=== PATIENT | male | born 1945 | race Caucasian/White ===

== ENCOUNTER 2021-07-13 12:55 | Inpatient (IN) | payer MEDICARE, OTHER ==
[~2021-07-13] VITALS: Ht 170.2 cm; Wt 81.8 kg
[2021-07-13] MEDS ORDERED: APIX5TAB PO (13:23)
[2021-07-13] MEDS ORDERED: SITA100T PO (13:23)
[2021-07-13] MEDS ORDERED: ASPI-866 PO (13:23)
[2021-07-13] MEDS ORDERED: INSULIN (13:23)
[2021-07-13] MEDS ORDERED: CLOP75TA15 PO (13:23)
--- NOTE | 2021-07-13 13:24 | NUR ---
.PT PROVIDED THE MED RECON
[2021-07-13] MEDS ORDERED: MORPHINE SULFATE 2 MG/1 ML DISP.SYRIN IV ONE ×2 (13:30→15:15)
[2021-07-13] MEDS ORDERED: MORPHINE SULFATE 2 MG/1 ML DISP.SYRIN ONE ×2 (13:41→14:49)
[2021-07-13 15:29] LABS: HEMATOCRIT 33.4 % (36.7-47.1); MEAN CORPUSCULAR HEMOGLOBIN 29.8 uug (23.8-33.4); MEAN CORPUSCULAR VOLUME 90.7 fL (73.0-96.2); PLATELET COUNT (AUTO) 212 K/uL (152-348)
[2021-07-13 15:32] LABS: CARBON DIOXIDE 24 mmol/L (21-32); CHLORIDE 106 mmol/L (98-107); CREATININE 1.3 mg/dL (0.6-1.3); GLUCOSE 141 mg/dL (74-106); POTASSIUM 4.6 mmol/L (3.5-5.1); UREA NITROGEN, BLOOD 40 mg/dL (7-18)
[2021-07-13 15:38] LABS: ALANINE AMINOTRANSFERASE 17 U/L (16-63); ALKALINE PHOSPHATASE 84 U/L (50-136); ASPARTATE AMINOTRANSFERASE 17 U/L (15-37); BILIRUBIN,DIRECT 0.2 mg/dL (0.0-0.2); BILIRUBIN,TOTAL 0.4 mg/dL (0.2-1.0); TOTAL PROTEIN, SERUM 7.3 g/dL (6.4-8.2)
[2021-07-13] MEDS ORDERED: HYDROMORPHONE 1 MG/1 ML DISP.SYRIN IV ONE ×2 (16:00→17:00)
[2021-07-13] MEDS ORDERED: HYDROMORPHONE 1 MG/1 ML DISP.SYRIN ONE ×2 (16:17→17:10)
[2021-07-13] MEDS ORDERED: KETAMINE HCL 500 MG/10 ML INJ IV ONE (17:00)
[2021-07-13] MEDS ORDERED: KETAMINE HCL 500 MG/10 ML INJ ONE (17:10)
--- NOTE | 2021-07-13 18:58 | NUR ---
Patient is resting comfortably on gurney with eyes closed, calm when awake, respiration:easy, for transfer to 3rd floor medical-surgical floor after change of shift. SBAR to 7pm nurse Ihsan.
[2021-07-13] MEDS ORDERED: REMEDY ESSENTIAL ZINC PASTE 113 GM TP PRN (19:00)
[2021-07-13] MEDS ORDERED: ONDANSETRON 4 MG/2 ML VIAL IV PRN (19:00)
[2021-07-13] MEDS ORDERED: MAGNESIUM HYDROXIDE 30 ML LIQUID UDC PO PRN (19:00)
[2021-07-13] MEDS ORDERED: DEXTROSE 50% 50 ML DISP.SYRIN IV PRN (19:00)
[2021-07-13] MEDS ORDERED: ZOLPIDEM 5 MG TABLET PO PRN (19:00)
[2021-07-13] MEDS: APIXABAN 5 MG TABLET PO SCH (19:15)
[2021-07-13] MEDS ORDERED: Z GUARD REMEDY PASTE 57 GM TUBE TOP PRN (19:15)
--- NOTE | 2021-07-13 19:17 | NUR ---
report received. pt to go to room 311. pt a/o denies pain.
--- NOTE | 2021-07-13 19:56 | NUR ---
pt transferred to room 311 via nneka with myself and another RN. Marilou BRITO in room to accept pt. Pt transferred with all belongings.
[2021-07-13] MEDS: BLOOD SUGAR DIAGNOSTIC 1 EACH STRIP VI SCH (22:11)
[2021-07-13] MEDS: MORPHINE SULFATE 2 MG/1 ML DISP.SYRIN IV PRN (22:19)
[2021-07-13] MEDS: IV NS 1000 ML 1,000 ML IV PRN (22:20)
[2021-07-13] MEDS: INSULIN REGULAR, HUMAN 300 UNIT/3 ML VIAL SQ PRN (22:21)
[2021-07-13] MEDS: HYDROCODONE/APAP 5-325MG TABLET PO PRN (22:47)
[2021-07-14] MEDS: HYDROCODONE/APAP 5-325MG TABLET PO PRN ×5 (03:01→20:46)
[2021-07-14 05:35] VITALS: BP 111/48
--- NOTE | 2021-07-14 05:40 | NUR ---
Pt admitted to [facility] in stable condition. Pt in a substantial amount of pain in L hip due to fracture. States that morphine doesn't help much but PO [place] has been helping more. Able to make needs known. IV site intact. Comfort provided. Will endorse to day shift.
[2021-07-14] MEDS: BLOOD SUGAR DIAGNOSTIC 1 EACH STRIP VI SCH ×4 (06:53→20:59)
--- NOTE | 2021-07-14 08:00 | NUR ---
Discussed pain management with patient on asking for [place] and Morphine for breakthrough pain. Pt agreeable with pain management. Pt able to wiggle toes bilaterally on foot and feel sensation. Noted left leg longer than the right. Applied ICe pack on fractured area of left leg. IV on left forearm. IVF infusing as ordered. Discussed importance of turning q 2 hrs with pt so that he wont develop any bed sores. Pt refuses "IM in too much Pain to do that". Will plan to premedicate prior to turning.
[2021-07-14 08:16] LABS: HEMATOCRIT 30.3 % (36.7-47.1); MEAN CORPUSCULAR HEMOGLOBIN 29.4 uug (23.8-33.4); MEAN CORPUSCULAR VOLUME 90.1 fL (73.0-96.2); PLATELET COUNT (AUTO) 182 K/uL (152-348)
[2021-07-14 08:40] LABS: CREATININE 1.2 mg/dL (0.6-1.3); MAGNESIUM 2.2 mg/dL (1.8-2.4)
[2021-07-14] MEDS ORDERED: CLOPIDOGREL 75 MG TABLET PO SCH (09:00)
[2021-07-14] MEDS ORDERED: ASPIRIN EC 81 MG TABLET.DR PO SCH (09:00)
[2021-07-14] MEDS: APIXABAN 5 MG TABLET PO SCH (09:21)
[2021-07-14 11:14] VITALS: BP 119/56
[2021-07-14] MEDS: MORPHINE SULFATE 2 MG/1 ML DISP.SYRIN IV PRN ×2 (11:51→18:13)
[2021-07-14 15:10] VITALS: BP 105/49
--- NOTE | 2021-07-14 16:00 | NUR ---
PT has been refusing to turn 2nd to pain even if pt was premedicated. Call light is within reach.
[2021-07-14] MEDS: IV NS 1000 ML 1,000 ML IV PRN ×2 (16:04→16:13)
[2021-07-14] MEDS ORDERED: GABA-532 PO (16:13)
[2021-07-14] MEDS ORDERED: LISI1TAB55 PO (16:13)
[2021-07-14] MEDS ORDERED: PANT40TA49 PO (16:14)
[2021-07-14] MEDS ORDERED: ROSU10TA2 GT (16:14)
[2021-07-14] MEDS ORDERED: TAMS-3 PO (16:15)
[2021-07-14] MEDS ORDERED: CARV6.252 PO (16:15)
[2021-07-14 17:20] LABS: *BILIRUBIN,URIN NEGATIVE (NEGATIVE); *CLARITY,URINE CLEAR (CLEAR); *COLOR,URINE YELLOW (YELLOW); *KETONES,URINE NEGATIVE (NEGATIVE); *UROBILINOGEN,URINE 0.2 E.U./dl (NORMAL); LEUKOCYTE ESTERASE ,URINE NEGATIVE (NEGATIVE); NITRITE, URINE NEGATIVE (NEGATIVE)
[2021-07-14 17:21] LABS: UGLUCOSE 2+ (NEGATIVE)
[2021-07-14 17:22] LABS: *BLOOD, URINE TRACE (NEGATIVE)
[2021-07-14 17:24] LABS: BACTERIA,URINE NONE SEEN /HPF (NONE SEEN); RBC,URINE 0-3 /HPF (0-3); SQUAMOUS EPITHELIAL CELL,UR NONE SEEN /HPF (NONE SEEN); WBC,URINE 0-3 /HPF (0-3)
--- NOTE | 2021-07-14 18:46 | NUR ---
Pt's pain managed with NORCO and MORPHINE for breakthrough. PT is in no acute distress. Continue to put ICE on LEft leg.
--- NOTE | 2021-07-14 19:30 | NUR ---
Received pt awake, alert and orientedx4. Pt in no acute distress. Pt can make his needs known. Iv intact. Pt on room air. Safety and comfort provided. Will continue to monitor.
[2021-07-14] MEDS: ACETAMINOPHEN 325 MG TABLET PO PRN (20:45)
[2021-07-14] MEDS: INSULIN REGULAR, HUMAN 300 UNIT/3 ML VIAL SQ PRN (20:47)
[2021-07-14 21:38] VITALS: BP 106/53
[2021-07-15 00:03] LABS: *CREATININE,URINE 75.3 mg/dL (30-125); *URINE TOTAL PROTEIN RANDOM 16.5 mg/dL (<150/24HR)
[2021-07-15 04:15] VITALS: BP 129/51
--- NOTE | 2021-07-15 06:22 | NUR ---
Pt in no acute distress. Iv intact.Pt on room air. Ice compress applied. Safety and comfort provided. Pt stable. Pt on npo. All needs are met. Will endorse to incoming nurse for continuity of care.
[2021-07-15] MEDS: BLOOD SUGAR DIAGNOSTIC 1 EACH STRIP VI SCH ×4 (06:38→21:14)
[2021-07-15] MEDS: IV NS 1000 ML 1,000 ML IV PRN (06:40)
[2021-07-15] MEDS: MORPHINE SULFATE 2 MG/1 ML DISP.SYRIN IV PRN (06:43)
--- NOTE | 2021-07-15 06:43 | NUR ---
morphine prn given to pt for 8/10 hip pain. Pt stable. Will endorse to incoming nurse for continuity of care.
--- NOTE | 2021-07-15 07:00 | NUR ---
Asked pt if we can change his clothes to gown. Pt told staff that he will change later.Pt stable. Will endorse to incoming nurse.
[2021-07-15 07:15] LABS: HEMATOCRIT 30.4 % (36.7-47.1); MEAN CORPUSCULAR HEMOGLOBIN 28.9 uug (23.8-33.4); MEAN CORPUSCULAR VOLUME 90.3 fL (73.0-96.2); PLATELET COUNT (AUTO) 177 K/uL (152-348)
[2021-07-15 07:40] LABS: CREATININE 1.3 mg/dL (0.6-1.3); MAGNESIUM 2.1 mg/dL (1.8-2.4); PHOSPHOROUS 3.3 mg/dL (2.5-4.9); POTASSIUM 4.3 mmol/L (3.5-5.1)
[2021-07-15 11:52] VITALS: BP 144/68
[2021-07-15] MEDS: HYDROCODONE/APAP 5-325MG TABLET PO PRN (11:58)
--- NOTE | 2021-07-15 16:00 | NUR ---
Pt picked up by surgery team. PT's pain managed with norco and morphine. preop checklist done. consent done.
[2021-07-15 16:04] VITALS: BP 130/55
[2021-07-15] MEDS ORDERED: FENTANYL CITRATE 100 MCG/2 ML AMPUL ONE ×2 (16:47→18:22)
[2021-07-15] MEDS ORDERED: VANCOMYCIN 1000 MG VIAL ONE (17:29)
[2021-07-15] MEDS ORDERED: EMPA25TA PO (17:29)
--- NOTE | 2021-07-15 19:40 | NUR ---
PATIENT BACK FROM SURGEY, ALERT ORIENTED, NO SOB NO CHEST PAIN, COMPLAINS OF BACK PAIN S/P FALL, WITH LEFT THIGH DRESSING AND LEFT HIP DRESSING, KEPT COMFORTABLE, CALL LIGHTS WITHIN REACH. CONT TO MONITOR.
[2021-07-15 20:00] VITALS: BP 122/62
[2021-07-15] MEDS: MORPHINE SULFATE 4 MG/1 ML DISP.SYRIN IV PRN (20:02)
[2021-07-15] MEDS: POTASSIUM CHLORIDE 20 MEQ in IV D5 1/2 NS 1000 ML 1,000 ML IV PRN (21:10)
[2021-07-16] MEDS: CEFAZOLIN 1 G in IV DEXTROSE 5% 50 ML IV SCH ×2 (01:14→09:21)
[2021-07-16 04:00] VITALS: BP 110/50
--- NOTE | 2021-07-16 04:38 | NUR ---
PATIENT ASLEEP BUT AROUSABLE, PATIENT HAS PAIN BUT TOLERABLE, KEPT CLEAN AND DRY, TURN SIDE BY SIDE, CONT TO MONITOR.
[2021-07-16] MEDS: ACETAMINOPHEN 325 MG TABLET PO PRN (05:37)
[2021-07-16] MEDS: BLOOD SUGAR DIAGNOSTIC 1 EACH STRIP VI SCH ×4 (06:04→21:08)
[2021-07-16] MEDS: INSULIN REGULAR, HUMAN 300 UNIT/3 ML VIAL SQ PRN ×2 (08:25→16:54)
[2021-07-16] MEDS: MORPHINE SULFATE 4 MG/1 ML DISP.SYRIN IV PRN ×2 (08:28→21:27)
--- NOTE | 2021-07-16 08:30 | NUR ---
PATIENT RECEIVED IN BED AWAKE ALERT AND ORIENTED GETS EASILY ANNOYED WANTS TO EAT HIS BREAKFAST AT 0700 EVERY DAY STATED HIS FOOD WAS LATE REASSURED HIM THAT FOOD IS BEING PREPARED IN THE DIETARY AND IS USUALLY PASSED SOON IT GETS TO THE FLOOR SEEM TO UNDERSTAND BUT WILL CONTINUE TO REASSURE MEDICATED HIM FOR PAIN POST OP TEACHING IN PROGRESS INFORMED HIM THAT THE PHYSICAL THERAPY WILL BE HERE TO MOBILIZE HIM ORDERED BY HIS ORTHOPEDIC DOCTOR AND HE EXPRESSED UNDERSTANDING.VOIDING HAS BEEN ADEQUATE USING URINAL LEFT HIP WITH DRESSING INTACT CALL LIGHTS AND PERSONAL BELONGINGS ARE WITHIN EASY REACH WILL CONTINUE TO OBSERVE.
[2021-07-16] MEDS: POTASSIUM CHLORIDE 20 MEQ in IV D5 1/2 NS 1000 ML 1,000 ML IV PRN (09:35)
--- NOTE | 2021-07-16 11:50 | NUR ---
BLOOD SUGAR AT THIS TIME IS 143 AND PER THE SLIDING SCALE PATIENT SHOULD GET 2UNITS OF REGULAR INSULIN BUT HE REFUSED STATED THAT HE DOES NOT TAKE INSULIN AT SUCH A LOW NUMBER PATIENT RIGHT TO REFUSED RESPECTED.
[2021-07-16 12:00] VITALS: BP 102/57
[2021-07-16 13:09] LABS: HEMATOCRIT 27.1 % (36.7-47.1); MEAN CORPUSCULAR HEMOGLOBIN 29.6 uug (23.8-33.4); MEAN CORPUSCULAR VOLUME 91.2 fL (73.0-96.2); PLATELET COUNT (AUTO) 168 K/uL (152-348)
[2021-07-16 13:22] LABS: CARBON DIOXIDE 23 mmol/L (21-32); CHLORIDE 105 mmol/L (98-107); CREATININE 1.7 mg/dL (0.6-1.3); GLUCOSE 149 mg/dL (74-106); POTASSIUM 4.3 mmol/L (3.5-5.1); UREA NITROGEN, BLOOD 31 mg/dL (7-18)
[2021-07-16] MEDS: SOD FERRIC GLUC COMPLX/SUCROSE 125 MG in IV NORMAL SALINE 100 ML IV SCH (16:55)
--- NOTE | 2021-07-16 18:00 | NUR ---
FERRLICIT INFUSED ORDERED WITH NO ADVERSE OR ALLERGIC REACTIONS AT THIS TIME AFEBRILE MADE COMFORTABLE WILL CONTINUE TO OBSERVE
[2021-07-16 20:00] VITALS: BP 126/55
--- NOTE | 2021-07-16 20:00 | NUR ---
PATIENT ALERT ORIENTED, WITH R HIP DRESSING, COMPLAIN OF PAIN WHEN MOVED, TURN AND REPOSITION, MEDICATED PATIENT FOR PAIN PRIOR ADL'S, KEPT CLEAN AND DRY, CONT TO MONITOR.
[2021-07-16] MEDS: DOCUSATE SODIUM 100 MG CAPSULE PO SCH (21:07)
[2021-07-17] MEDS: POTASSIUM CHLORIDE 20 MEQ in IV D5 1/2 NS 1000 ML 1,000 ML IV PRN ×3 (00:02→19:50)
[2021-07-17 04:00] VITALS: BP 115/48
[2021-07-17] MEDS: BLOOD SUGAR DIAGNOSTIC 1 EACH STRIP VI SCH ×4 (06:18→20:36)
[2021-07-17 06:46] LABS: HEMATOCRIT 25.4 % (36.7-47.1); MEAN CORPUSCULAR VOLUME 90.3 fL (73.0-96.2); PLATELET COUNT (AUTO) 160 K/uL (152-348)
--- NOTE | 2021-07-17 06:49 | NUR ---
PATIENT ALERT ORIENTED, CONT PAIN MANAGEMENT ON LEFT SURGERY, AND BACK PAIN, KEPT CLEAN AND DRY, CONT TO MONITOR.
[2021-07-17 07:08] LABS: CREATININE 1.3 mg/dL (0.6-1.3); POTASSIUM 4.2 mmol/L (3.5-5.1)
[2021-07-17] MEDS: MORPHINE SULFATE 4 MG/1 ML DISP.SYRIN IV PRN (08:35)
[2021-07-17] MEDS: INSULIN REGULAR, HUMAN 300 UNIT/3 ML VIAL SQ PRN ×4 (08:39→20:39)
[2021-07-17] MEDS: DOCUSATE SODIUM 100 MG CAPSULE PO SCH ×2 (08:49→20:19)
[2021-07-17 12:00] VITALS: BP 99/47
[2021-07-17] MEDS: SOD FERRIC GLUC COMPLX/SUCROSE 125 MG in IV NORMAL SALINE 100 ML IV SCH (14:21)
[2021-07-17 16:00] VITALS: BP 110/49
[2021-07-17] MEDS: APIXABAN 5 MG TABLET PO SCH (18:03)
[2021-07-17 20:00] VITALS: BP 115/60
[2021-07-17] MEDS: ACETAMINOPHEN 325 MG TABLET PO PRN (20:19)
[2021-07-18] MEDS: MORPHINE SULFATE 4 MG/1 ML DISP.SYRIN IV PRN ×2 (03:16→08:25)
[2021-07-18 04:00] VITALS: BP 113/77
--- NOTE | 2021-07-18 06:02 | NUR ---
Pt c/o pain periodically that is relieved with morphine. No distress noted. IV site intact. Pt able to make needs known. Will endorse to day shift.
[2021-07-18] MEDS: POTASSIUM CHLORIDE 20 MEQ in IV D5 1/2 NS 1000 ML 1,000 ML IV PRN (06:11)
[2021-07-18] MEDS: BLOOD SUGAR DIAGNOSTIC 1 EACH STRIP VI SCH ×2 (06:19→12:00)
[2021-07-18 06:50] LABS: HEMATOCRIT 24.5 % (36.7-47.1); MEAN CORPUSCULAR HEMOGLOBIN 29.3 uug (23.8-33.4); PLATELET COUNT (AUTO) 177 K/uL (152-348)
--- NOTE | 2021-07-18 07:30 | NUR ---
Received awake and oriented x3. Iv intact and patent. No resp distress noted. Comfortable no complaints at this time. Kept comfortable.
[2021-07-18] MEDS: INSULIN REGULAR, HUMAN 300 UNIT/3 ML VIAL SQ PRN ×2 (08:19→12:01)
[2021-07-18] MEDS: DOCUSATE SODIUM 100 MG CAPSULE PO SCH (08:20)
[2021-07-18] MEDS: ACETAMINOPHEN 325 MG TABLET PO PRN (08:20)
[2021-07-18] MEDS: APIXABAN 5 MG TABLET PO SCH (08:20)
[2021-07-18] MEDS ORDERED: CLOPIDOGREL 75 MG TABLET PO SCH (09:00)
[2021-07-18 10:51] VITALS: BP 115/65
[2021-07-18] MEDS ORDERED: HYDR-3980 PO (12:06)
[2021-07-18] MEDS ORDERED: ZOLP5TAB2 PO (12:06)
[2021-07-18] MEDS ORDERED: DOCU-141 PO (12:06)
[2021-07-18] MEDS ORDERED: CLOP75TA33 PO (12:06)
[2021-07-18] MEDS: SOD FERRIC GLUC COMPLX/SUCROSE 125 MG in IV NORMAL SALINE 100 ML IV SCH (14:09)
--- NOTE | 2021-07-18 15:03 | NUR ---
Patient agreed to being discharged to acute rehab unit verbalized understanding of discharge instructions. Belonging list done.
[2021-07-18] MEDS ORDERED: CEFAZOLIN 1 G VIAL IM ONE (15:14)
[2021-07-18] MEDS ORDERED: ONDANSETRON 4 MG/2 ML VIAL IV ONE (15:14)
[2021-07-18] MEDS ORDERED: LIDOCAINE-MPF 2% 5 ML VIAL IJ ONE (15:14)
[2021-07-18] MEDS ORDERED: PROPOFOL 200 MG/20 ML BOTTLE IV ONE (15:14)
[2021-07-18] MEDS ORDERED: ROSU10TA2 PO (17:42)
== END 2021-07-18 15:15 | DRG 480 ==
LOC: ER 12:58 → UNDOADMIN 18:55 → TRANSITION 18:55 → MEDSURG3 19:21
PROVIDERS: ADMIT Nurse Practitioner Acute Care; ATTEND Nurse Practitioner Acute Care
PROC: 0QS706Z Reposition Left Upper Femur with Intramedullary Internal Fixation Device, Open Approach (ICD-10-PCS; principal; 2021-07-15)
DX: S72.142A Displaced intertrochanteric fracture of left femur, initial encounter for closed fracture (principal); N17.0 Acute kidney failure with tubular necrosis; K56.7 Ileus, unspecified; E11.65 Type 2 diabetes mellitus with hyperglycemia; E88.9 Metabolic disorder, unspecified; I25.10 Atherosclerotic heart disease of native coronary artery without angina pectoris; Z79.01 Long term (current) use of anticoagulants; Z79.4 Long term (current) use of insulin; Z20.822 Contact with and (suspected) exposure to COVID-19; D64.9 Anemia, unspecified; Z79.82 Long term (current) use of aspirin; Z96.641 Presence of right artificial hip joint; W19.XXXA Unspecified fall, initial encounter; Y93.9 Activity, unspecified; Y92.009 Unspecified place in unspecified non-institutional (private) residence as the place of occurrence of the external cause; Z98.62 Peripheral vascular angioplasty status
CPT/HCPCS: 36415; 70030-TC; 70450; 71045; 72170; 73502; 73503; 73551; 83735; 84100; 84156; 84300; 85025; 85730; 86850; 86900; 86901; 86920; 93005; 93307; 97161; A4217; A4649; A6209; C1713; C1769; G0378; J0690; J1170; J2270; J2405; J2916; J3010; J3370; J3480; J3490; J7030; J7060

== ENCOUNTER 2021-07-18 15:20 | Inpatient (IN) | payer MEDICARE, OTHER ==
[~2021-07-18] VITALS: Ht 170.2 cm; Wt 81.6 kg
[~2021-07-18 15:20] MED LIST: APIX5TAB PO; ASPI-866 PO; CARV6.252 PO; CLOP75TA15 PO; CLOP75TA33 PO; DOCU-141 PO; EMPA25TA PO; GABA-532 PO; HYDR-3980 PO; INSULIN; LISI1TAB55 PO; PANT40TA49 PO; ROSU10TA2 GT; TAMS-3 PO; ZOLP5TAB2 PO
[2021-07-18 15:47] VITALS: BP 108/52
[2021-07-18] MEDS ORDERED: ROSU10TA2 PO (17:42)
[2021-07-18] MEDS ORDERED: REMEDY ESSENTIAL ZINC PASTE 113 GM TOP PRN (18:00)
[2021-07-18 20:00] VITALS: BP 129/54
[2021-07-18] MEDS ORDERED: ZOLPIDEM 5 MG TABLET PO PRN (20:45)
[2021-07-18] MEDS ORDERED: GABAPENTIN 100 MG CAPSULE PO PRN (20:45)
[2021-07-18] MEDS: ATORVASTATIN 20 MG TABLET PO SCH (21:30)
[2021-07-18] MEDS: CARVEDILOL 6.25 MG TABLET PO SCH (21:30)
[2021-07-18] MEDS: DOCUSATE SODIUM 100 MG CAPSULE PO SCH (21:30)
[2021-07-18] MEDS: APIXABAN 5 MG TABLET PO SCH (21:32)
[2021-07-19 04:00] VITALS: BP 121/56
[2021-07-19] MEDS: HYDROCODONE/APAP 10-325 MG TABLET PO PRN ×3 (06:04→18:36)
[2021-07-19] MEDS: PANTOPRAZOLE SODIUM 40 MG TABLET.DR PO SCH (06:04)
[2021-07-19 08:01] VITALS: BP 112/52
[2021-07-19] MEDS ORDERED: Medication Not On Formulary EA (Rosuvastatin Calcium (Crestor) 10 MG) PO SCH (09:00)
[2021-07-19] MEDS ORDERED: HCTZ PO SCH (09:00)
[2021-07-19] MEDS ORDERED: TAMSULOSIN HCL 0.4 MG CAP.SR.24H PO SCH (09:00)
[2021-07-19] MEDS ORDERED: LISINOPRIL PO SCH (09:00)
[2021-07-19] MEDS ORDERED: [UNRECOGNIZED DRUG - OTHER] PO SCH (09:00)
[2021-07-19] MEDS ORDERED: Empagliflozin (Jardiance) 25 MG) PO SCH (09:00)
[2021-07-19] MEDS: APIXABAN 5 MG TABLET PO SCH ×2 (09:09→16:32)
[2021-07-19] MEDS: HYDROCHLOROTHIAZIDE 12.5 MG CAPSULE PO SCH (09:09)
[2021-07-19] MEDS: CLOPIDOGREL 75 MG TABLET PO SCH (09:09)
[2021-07-19] MEDS: ASPIRIN EC 81 MG TABLET.DR PO SCH (09:09)
[2021-07-19] MEDS: DOCUSATE SODIUM 100 MG CAPSULE PO SCH ×2 (09:13→20:42)
[2021-07-19] MEDS: LISINOPRIL 20 MG TABLET PO SCH (09:13)
[2021-07-19] MEDS: CARVEDILOL 6.25 MG TABLET PO SCH ×2 (09:13→20:43)
[2021-07-19 16:03] VITALS: BP 110/51
[2021-07-19] MEDS ORDERED: DEXTROSE 50% 50 ML DISP.SYRIN IV PRN (17:45)
[2021-07-19 20:00] VITALS: BP 97/46
[2021-07-19] MEDS: TAMSULOSIN HCL 0.4 MG CAP.SR.24H PO SCH (20:42)
[2021-07-19] MEDS: ATORVASTATIN 20 MG TABLET PO SCH (20:42)
[2021-07-19] MEDS: BLOOD SUGAR DIAGNOSTIC 1 EACH STRIP VI SCH (20:49)
[2021-07-19] MEDS: INSULIN REGULAR, HUMAN 300 UNIT/3 ML VIAL SQ PRN (20:51)
[2021-07-20 04:40] VITALS: BP 107/59
[2021-07-20] MEDS: HYDROCODONE/APAP 10-325 MG TABLET PO PRN ×3 (06:07→22:07)
[2021-07-20] MEDS: PANTOPRAZOLE SODIUM 40 MG TABLET.DR PO SCH (06:28)
[2021-07-20] MEDS: BLOOD SUGAR DIAGNOSTIC 1 EACH STRIP VI SCH ×4 (06:38→21:07)
[2021-07-20 06:57] LABS: HEMATOCRIT 22.2 % (36.7-47.1); MEAN CORPUSCULAR HEMOGLOBIN 29.6 uug (23.8-33.4); MEAN CORPUSCULAR VOLUME 90.9 fL (73.0-96.2); PLATELET COUNT (AUTO) 221 K/uL (152-348)
[2021-07-20] MEDS: INSULIN REGULAR, HUMAN 300 UNIT/3 ML VIAL SQ PRN ×3 (08:31→17:11)
[2021-07-20 08:56] VITALS: BP 106/48
[2021-07-20] MEDS: ASPIRIN EC 81 MG TABLET.DR PO SCH (08:57)
[2021-07-20] MEDS: CLOPIDOGREL 75 MG TABLET PO SCH (08:57)
[2021-07-20] MEDS: DOCUSATE SODIUM 100 MG CAPSULE PO SCH ×3 (08:58→21:10)
[2021-07-20] MEDS: APIXABAN 5 MG TABLET PO SCH ×2 (08:58→16:59)
[2021-07-20] MEDS: HYDROCHLOROTHIAZIDE 12.5 MG CAPSULE PO SCH (09:00)
[2021-07-20] MEDS: CARVEDILOL 6.25 MG TABLET PO SCH ×2 (09:00→21:00)
[2021-07-20] MEDS: LISINOPRIL 20 MG TABLET PO SCH (09:00)
[2021-07-20 15:10] VITALS: BP 101/42
[2021-07-20] MEDS ORDERED: EPOETIN ALFA-EPBX 10,000 UNIT/ML VIAL SQ ONE (19:30)
[2021-07-20 20:30] VITALS: BP 106/58
[2021-07-20] MEDS: ATORVASTATIN 20 MG TABLET PO SCH (21:10)
[2021-07-20] MEDS: TAMSULOSIN HCL 0.4 MG CAP.SR.24H PO SCH (21:10)
[2021-07-20] MEDS: INSULIN REGULAR, HUMAN 300 UNITS/3 ML VIAL SQ PRN (21:12)
[2021-07-21 04:17] VITALS: BP 110/50
[2021-07-21] MEDS: PANTOPRAZOLE SODIUM 40 MG TABLET.DR PO SCH (06:03)
[2021-07-21] MEDS: BLOOD SUGAR DIAGNOSTIC 1 EACH STRIP VI SCH ×4 (06:54→20:45)
[2021-07-21 07:04] LABS: HEMATOCRIT 25.9 % (36.7-47.1); MEAN CORPUSCULAR HEMOGLOBIN 29.5 uug (23.8-33.4); MEAN CORPUSCULAR VOLUME 92.6 fL (73.0-96.2); PLATELET COUNT (AUTO) 278 K/uL (152-348)
[2021-07-21 08:46] VITALS: BP 119/57
[2021-07-21] MEDS: LISINOPRIL 20 MG TABLET PO SCH (09:00)
[2021-07-21] MEDS: CLOPIDOGREL 75 MG TABLET PO SCH (09:17)
[2021-07-21] MEDS: HYDROCHLOROTHIAZIDE 12.5 MG CAPSULE PO SCH (09:17)
[2021-07-21] MEDS: DOCUSATE SODIUM 100 MG CAPSULE PO SCH ×3 (09:18→21:00)
[2021-07-21] MEDS: CARVEDILOL 6.25 MG TABLET PO SCH ×2 (09:18→20:23)
[2021-07-21] MEDS: ASPIRIN EC 81 MG TABLET.DR PO SCH (09:18)
[2021-07-21] MEDS: HYDROCODONE/APAP 10-325 MG TABLET PO PRN ×2 (09:26→18:07)
[2021-07-21] MEDS: APIXABAN 5 MG TABLET PO SCH ×2 (09:32→17:21)
[2021-07-21 15:50] VITALS: BP 109/49
[2021-07-21] MEDS ORDERED: MAGNESIUM CITRATE 296 ML BOTTLE PO ONE (17:30)
[2021-07-21 20:00] VITALS: BP 108/59
[2021-07-21] MEDS: ATORVASTATIN 20 MG TABLET PO SCH (20:22)
[2021-07-21] MEDS: TAMSULOSIN HCL 0.4 MG CAP.SR.24H PO SCH (20:22)
[2021-07-21] MEDS: INSULIN REGULAR, HUMAN 300 UNITS/3 ML VIAL SQ PRN (20:50)
[2021-07-22 04:32] VITALS: BP 105/53
[2021-07-22] MEDS: PANTOPRAZOLE SODIUM 40 MG TABLET.DR PO SCH (05:56)
[2021-07-22] MEDS: BLOOD SUGAR DIAGNOSTIC 1 EACH STRIP VI SCH ×4 (06:01→20:48)
[2021-07-22] MEDS: DOCUSATE SODIUM 100 MG CAPSULE PO SCH ×3 (08:37→20:59)
[2021-07-22] MEDS: CLOPIDOGREL 75 MG TABLET PO SCH (08:37)
[2021-07-22] MEDS: HYDROCODONE/APAP 10-325 MG TABLET PO PRN ×2 (08:38→16:29)
[2021-07-22] MEDS: HYDROCHLOROTHIAZIDE 12.5 MG CAPSULE PO SCH (08:41)
[2021-07-22] MEDS: ASPIRIN EC 81 MG TABLET.DR PO SCH (08:41)
[2021-07-22] MEDS: CARVEDILOL 6.25 MG TABLET PO SCH ×2 (08:41→20:53)
[2021-07-22] MEDS: LISINOPRIL 20 MG TABLET PO SCH (08:41)
[2021-07-22] MEDS: APIXABAN 5 MG TABLET PO SCH ×2 (08:42→16:16)
[2021-07-22] MEDS: INSULIN REGULAR, HUMAN 300 UNIT/3 ML VIAL SQ PRN ×2 (11:27→16:17)
[2021-07-22] MEDS ORDERED: OXYCODONE HCL 5 MG TABLET PO SCH (13:00)
[2021-07-22] MEDS ORDERED: OXYCODONE HCL 5 MG TABLET PO ONE (13:00)
[2021-07-22 20:00] VITALS: BP 101/45
[2021-07-22] MEDS: INSULIN REGULAR, HUMAN 300 UNITS/3 ML VIAL SQ PRN (20:49)
[2021-07-22] MEDS: ATORVASTATIN 20 MG TABLET PO SCH (20:50)
[2021-07-22] MEDS: TAMSULOSIN HCL 0.4 MG CAP.SR.24H PO SCH (20:50)
[2021-07-22] MEDS: OXYCODONE HCL 10 MG TAB.SR.12H PO SCH (20:52)
[2021-07-23 04:00] VITALS: BP 107/44
[2021-07-23] MEDS: PANTOPRAZOLE SODIUM 40 MG TABLET.DR PO SCH (06:04)
[2021-07-23] MEDS: BLOOD SUGAR DIAGNOSTIC 1 EACH STRIP VI SCH ×4 (06:33→20:39)
[2021-07-23 08:19] VITALS: BP 95/49
[2021-07-23] MEDS: OXYCODONE HCL 10 MG TAB.SR.12H PO SCH ×2 (08:36→20:33)
[2021-07-23] MEDS: INSULIN REGULAR, HUMAN 300 UNIT/3 ML VIAL SQ PRN ×2 (08:37→12:27)
[2021-07-23] MEDS: DOCUSATE SODIUM 100 MG CAPSULE PO SCH ×2 (08:38→20:33)
[2021-07-23] MEDS: ASPIRIN EC 81 MG TABLET.DR PO SCH (08:40)
[2021-07-23] MEDS: HYDROCHLOROTHIAZIDE 12.5 MG CAPSULE PO SCH (08:40)
[2021-07-23] MEDS: CARVEDILOL 6.25 MG TABLET PO SCH ×2 (08:40→20:34)
[2021-07-23] MEDS: CLOPIDOGREL 75 MG TABLET PO SCH (08:40)
[2021-07-23] MEDS: APIXABAN 5 MG TABLET PO SCH ×2 (08:41→16:42)
[2021-07-23] MEDS: LISINOPRIL 20 MG TABLET PO SCH (08:43)
[2021-07-23] MEDS: HYDROCODONE/APAP 10-325 MG TABLET PO PRN (12:32)
[2021-07-23] MEDS ORDERED: OXYCODONE/APAP 5-325 MG TABLET PO PRN (19:00)
[2021-07-23 20:00] VITALS: BP 123/55
[2021-07-23] MEDS: ATORVASTATIN 20 MG TABLET PO SCH (20:31)
[2021-07-23] MEDS: TAMSULOSIN HCL 0.4 MG CAP.SR.24H PO SCH (20:32)
[2021-07-23] MEDS: INSULIN REGULAR, HUMAN 300 UNITS/3 ML VIAL SQ PRN (21:44)
[2021-07-24 04:00] VITALS: BP 110/48
[2021-07-24] MEDS: PANTOPRAZOLE SODIUM 40 MG TABLET.DR PO SCH (06:09)
[2021-07-24] MEDS: BLOOD SUGAR DIAGNOSTIC 1 EACH STRIP VI SCH ×4 (06:36→21:00)
[2021-07-24] MEDS: INSULIN REGULAR, HUMAN 300 UNIT/3 ML VIAL SQ PRN ×3 (08:31→16:26)
[2021-07-24] MEDS: HYDROCHLOROTHIAZIDE 12.5 MG CAPSULE PO SCH (08:32)
[2021-07-24] MEDS: OXYCODONE HCL 10 MG TAB.SR.12H PO SCH (08:32)
[2021-07-24] MEDS: APIXABAN 5 MG TABLET PO SCH ×2 (08:32→16:26)
[2021-07-24] MEDS: CLOPIDOGREL 75 MG TABLET PO SCH (08:32)
[2021-07-24] MEDS: ASPIRIN EC 81 MG TABLET.DR PO SCH (08:33)
[2021-07-24] MEDS: LISINOPRIL 20 MG TABLET PO SCH (08:34)
[2021-07-24] MEDS: CARVEDILOL 6.25 MG TABLET PO SCH ×2 (08:34→21:00)
[2021-07-24] MEDS: DOCUSATE SODIUM 100 MG CAPSULE PO SCH ×3 (08:34→21:00)
[2021-07-24 08:50] VITALS: BP 108/72
[2021-07-24] MEDS: OXYCODONE/APAP 5-325 MG TABLET PO PRN (12:08)
[2021-07-24] MEDS ORDERED: OXYCODONE HCL 10 MG TAB.SR.12H PO SCH (14:00)
[2021-07-24 17:16] VITALS: BP 95/52
[2021-07-24 20:00] VITALS: BP 102/40
[2021-07-24] MEDS: OXYCODONE HCL 20 MG TAB.SR.12H PO SCH (20:00)
[2021-07-24] MEDS: ATORVASTATIN 20 MG TABLET PO SCH (21:00)
[2021-07-24] MEDS: TAMSULOSIN HCL 0.4 MG CAP.SR.24H PO SCH (21:00)
[2021-07-25 04:00] VITALS: BP 99/57
[2021-07-25] MEDS: PANTOPRAZOLE SODIUM 40 MG TABLET.DR PO SCH (07:52)
[2021-07-25] MEDS: BLOOD SUGAR DIAGNOSTIC 1 EACH STRIP VI SCH ×4 (07:52→20:25)
[2021-07-25 07:54] VITALS: BP 101/55
[2021-07-25] MEDS: ASPIRIN EC 81 MG TABLET.DR PO SCH (08:39)
[2021-07-25] MEDS: CLOPIDOGREL 75 MG TABLET PO SCH (08:40)
[2021-07-25] MEDS: DOCUSATE SODIUM 100 MG CAPSULE PO SCH ×2 (08:40→20:20)
[2021-07-25] MEDS: APIXABAN 5 MG TABLET PO SCH ×2 (08:41→17:08)
[2021-07-25] MEDS: OXYCODONE HCL 20 MG TAB.SR.12H PO SCH ×2 (08:46→20:20)
[2021-07-25] MEDS: HYDROCHLOROTHIAZIDE 12.5 MG CAPSULE PO SCH (09:00)
[2021-07-25] MEDS: CARVEDILOL 6.25 MG TABLET PO SCH ×2 (09:00→20:29)
[2021-07-25] MEDS: LISINOPRIL 20 MG TABLET PO SCH (09:00)
[2021-07-25] MEDS: INSULIN REGULAR, HUMAN 300 UNIT/3 ML VIAL SQ PRN ×4 (09:20→20:28)
[2021-07-25 15:56] VITALS: BP 100/52
[2021-07-25 20:20] VITALS: BP 96/42
[2021-07-25] MEDS: ATORVASTATIN 20 MG TABLET PO SCH (20:20)
[2021-07-25] MEDS: TAMSULOSIN HCL 0.4 MG CAP.SR.24H PO SCH (20:20)
[2021-07-26 04:42] VITALS: BP 106/55
[2021-07-26] MEDS: PANTOPRAZOLE SODIUM 40 MG TABLET.DR PO SCH (06:06)
[2021-07-26] MEDS: BLOOD SUGAR DIAGNOSTIC 1 EACH STRIP VI SCH ×4 (06:32→20:30)
[2021-07-26 07:57] VITALS: BP 91/54
[2021-07-26] MEDS: OXYCODONE HCL 20 MG TAB.SR.12H PO SCH ×2 (08:10→20:24)
[2021-07-26] MEDS: DOCUSATE SODIUM 100 MG CAPSULE PO SCH ×2 (08:10→20:24)
[2021-07-26] MEDS: CLOPIDOGREL 75 MG TABLET PO SCH (08:11)
[2021-07-26] MEDS: LISINOPRIL 20 MG TABLET PO SCH (08:11)
[2021-07-26] MEDS: ASPIRIN EC 81 MG TABLET.DR PO SCH (08:11)
[2021-07-26] MEDS: HYDROCHLOROTHIAZIDE 12.5 MG CAPSULE PO SCH (08:11)
[2021-07-26] MEDS: CARVEDILOL 6.25 MG TABLET PO SCH ×2 (08:13→20:25)
[2021-07-26] MEDS: APIXABAN 5 MG TABLET PO SCH ×2 (08:14→16:49)
[2021-07-26] MEDS: INSULIN REGULAR, HUMAN 300 UNIT/3 ML VIAL SQ PRN ×2 (09:01→18:02)
[2021-07-26 15:40] VITALS: BP 127/108
[2021-07-26] MEDS: OXYCODONE/APAP 5-325 MG TABLET PO PRN (17:02)
[2021-07-26] MEDS: TAMSULOSIN HCL 0.4 MG CAP.SR.24H PO SCH (20:26)
[2021-07-26] MEDS: ATORVASTATIN 20 MG TABLET PO SCH (20:26)
[2021-07-26 20:36] VITALS: BP 101/46
[2021-07-26] MEDS: INSULIN REGULAR, HUMAN 300 UNITS/3 ML VIAL SQ PRN (21:23)
[2021-07-27 04:44] VITALS: BP 98/46
[2021-07-27] MEDS: PANTOPRAZOLE SODIUM 40 MG TABLET.DR PO SCH (06:01)
[2021-07-27] MEDS: BLOOD SUGAR DIAGNOSTIC 1 EACH STRIP VI SCH ×4 (06:30→20:17)
[2021-07-27 08:20] VITALS: BP 106/50
[2021-07-27] MEDS: ASPIRIN EC 81 MG TABLET.DR PO SCH (08:26)
[2021-07-27] MEDS: CLOPIDOGREL 75 MG TABLET PO SCH (08:27)
[2021-07-27] MEDS: DOCUSATE SODIUM 100 MG CAPSULE PO SCH ×2 (08:29→20:10)
[2021-07-27] MEDS: APIXABAN 5 MG TABLET PO SCH ×2 (08:29→16:38)
[2021-07-27] MEDS: OXYCODONE HCL 20 MG TAB.SR.12H PO SCH ×2 (08:36→20:10)
[2021-07-27] MEDS: CARVEDILOL 6.25 MG TABLET PO SCH ×2 (08:37→20:12)
[2021-07-27] MEDS: HYDROCHLOROTHIAZIDE 12.5 MG CAPSULE PO SCH (08:38)
[2021-07-27] MEDS: LISINOPRIL 20 MG TABLET PO SCH (08:38)
[2021-07-27] MEDS: OXYCODONE/APAP 5-325 MG TABLET PO PRN (10:21)
[2021-07-27] MEDS: INSULIN REGULAR, HUMAN 300 UNIT/3 ML VIAL SQ PRN (12:02)
[2021-07-27] MEDS ORDERED: IBUPROFEN 400 MG TABLET PO PRN (13:15)
[2021-07-27 16:13] VITALS: BP 98/43
[2021-07-27] MEDS: TAMSULOSIN HCL 0.4 MG CAP.SR.24H PO SCH (20:10)
[2021-07-27] MEDS: ATORVASTATIN 20 MG TABLET PO SCH (20:11)
[2021-07-27 20:19] VITALS: BP 120/58
[2021-07-27] MEDS: INSULIN REGULAR, HUMAN 300 UNITS/3 ML VIAL SQ PRN (20:19)
[2021-07-28 04:25] VITALS: BP 112/52
[2021-07-28] MEDS: PANTOPRAZOLE SODIUM 40 MG TABLET.DR PO SCH (06:13)
[2021-07-28] MEDS: BLOOD SUGAR DIAGNOSTIC 1 EACH STRIP VI SCH ×4 (06:44→20:11)
[2021-07-28] MEDS: OXYCODONE HCL 20 MG TAB.SR.12H PO SCH ×2 (08:00→20:00)
[2021-07-28 08:17] VITALS: BP 102/65
[2021-07-28] MEDS: DOCUSATE SODIUM 100 MG CAPSULE PO SCH ×3 (08:29→20:17)
[2021-07-28] MEDS: ASPIRIN EC 81 MG TABLET.DR PO SCH (08:31)
[2021-07-28] MEDS: CLOPIDOGREL 75 MG TABLET PO SCH (08:32)
[2021-07-28] MEDS: LISINOPRIL 10 MG TABLET PO SCH (08:33)
[2021-07-28] MEDS: CARVEDILOL 6.25 MG TABLET PO SCH ×2 (08:35→20:08)
[2021-07-28] MEDS: APIXABAN 5 MG TABLET PO SCH ×2 (08:35→17:23)
[2021-07-28] MEDS: INSULIN REGULAR, HUMAN 300 UNIT/3 ML VIAL SQ PRN (08:39)
[2021-07-28 15:04] VITALS: BP 107/43
[2021-07-28] MEDS: TAMSULOSIN HCL 0.4 MG CAP.SR.24H PO SCH (20:07)
[2021-07-28] MEDS: ATORVASTATIN 20 MG TABLET PO SCH (20:09)
[2021-07-28 20:12] VITALS: BP 121/45
[2021-07-28] MEDS: INSULIN REGULAR, HUMAN 300 UNITS/3 ML VIAL SQ PRN (20:15)
[2021-07-29 04:15] VITALS: BP_SYST 105; BP_SYST 107; BP_DIAS 46; BP_DIAS 51
[2021-07-29] MEDS: PANTOPRAZOLE SODIUM 40 MG TABLET.DR PO SCH (05:42)
[2021-07-29] MEDS: BLOOD SUGAR DIAGNOSTIC 1 EACH STRIP VI SCH ×4 (06:37→21:25)
[2021-07-29 08:14] VITALS: BP 120/48
[2021-07-29] MEDS: ASPIRIN EC 81 MG TABLET.DR PO SCH (08:21)
[2021-07-29] MEDS: OXYCODONE HCL 20 MG TAB.SR.12H PO SCH ×2 (08:21→20:00)
[2021-07-29] MEDS: DOCUSATE SODIUM 100 MG CAPSULE PO SCH ×2 (08:21→20:48)
[2021-07-29] MEDS: CLOPIDOGREL 75 MG TABLET PO SCH (08:21)
[2021-07-29] MEDS: APIXABAN 5 MG TABLET PO SCH ×2 (08:24→16:48)
[2021-07-29] MEDS: LISINOPRIL 10 MG TABLET PO SCH (08:26)
[2021-07-29] MEDS: CARVEDILOL 6.25 MG TABLET PO SCH ×2 (08:27→21:00)
[2021-07-29] MEDS: INSULIN REGULAR, HUMAN 300 UNIT/3 ML VIAL SQ PRN ×2 (11:35→16:29)
[2021-07-29] MEDS: OXYCODONE/APAP 5-325 MG TABLET PO PRN (13:10)
[2021-07-29 15:29] VITALS: BP 95/50
[2021-07-29 20:00] VITALS: BP 109/34
[2021-07-29] MEDS: INSULIN REGULAR, HUMAN 300 UNITS/3 ML VIAL SQ PRN (20:47)
[2021-07-29] MEDS: TAMSULOSIN HCL 0.4 MG CAP.SR.24H PO SCH (20:48)
[2021-07-29] MEDS: ATORVASTATIN 20 MG TABLET PO SCH (20:48)
[2021-07-30 04:00] VITALS: BP 108/63
[2021-07-30] MEDS: PANTOPRAZOLE SODIUM 40 MG TABLET.DR PO SCH (06:06)
[2021-07-30] MEDS: BLOOD SUGAR DIAGNOSTIC 1 EACH STRIP VI SCH ×4 (07:35→20:37)
[2021-07-30] MEDS: CLOPIDOGREL 75 MG TABLET PO SCH (09:02)
[2021-07-30] MEDS: ASPIRIN EC 81 MG TABLET.DR PO SCH (09:02)
[2021-07-30] MEDS: DOCUSATE SODIUM 100 MG CAPSULE PO SCH ×2 (09:02→20:33)
[2021-07-30] MEDS: APIXABAN 5 MG TABLET PO SCH ×2 (09:03→17:27)
[2021-07-30] MEDS: OXYCODONE HCL 20 MG TAB.SR.12H PO SCH ×2 (09:06→20:00)
[2021-07-30] MEDS: LISINOPRIL 10 MG TABLET PO SCH (09:07)
[2021-07-30] MEDS: CARVEDILOL 6.25 MG TABLET PO SCH ×2 (09:07→20:38)
[2021-07-30] MEDS: INSULIN REGULAR, HUMAN 300 UNIT/3 ML VIAL SQ PRN (11:33)
[2021-07-30 12:00] VITALS: BP 99/43
[2021-07-30 15:42] VITALS: BP 98/45
[2021-07-30 20:00] VITALS: BP 116/62
[2021-07-30] MEDS: TAMSULOSIN HCL 0.4 MG CAP.SR.24H PO SCH (20:37)
[2021-07-30] MEDS: ATORVASTATIN 20 MG TABLET PO SCH (20:38)
[2021-07-30] MEDS: INSULIN REGULAR, HUMAN 300 UNITS/3 ML VIAL SQ PRN (20:39)
[2021-07-31 04:00] VITALS: BP 123/51
[2021-07-31] MEDS: PANTOPRAZOLE SODIUM 40 MG TABLET.DR PO SCH (06:11)
[2021-07-31] MEDS: BLOOD SUGAR DIAGNOSTIC 1 EACH STRIP VI SCH ×4 (06:11→20:28)
[2021-07-31 08:00] VITALS: BP 125/42
[2021-07-31] MEDS: DOCUSATE SODIUM 100 MG CAPSULE PO SCH ×2 (09:10→20:19)
[2021-07-31] MEDS: ASPIRIN EC 81 MG TABLET.DR PO SCH (09:10)
[2021-07-31] MEDS: CLOPIDOGREL 75 MG TABLET PO SCH (09:10)
[2021-07-31] MEDS: APIXABAN 5 MG TABLET PO SCH ×2 (09:12→17:55)
[2021-07-31] MEDS: OXYCODONE HCL 20 MG TAB.SR.12H PO SCH ×2 (09:19→20:18)
[2021-07-31] MEDS: CARVEDILOL 6.25 MG TABLET PO SCH ×2 (09:55→20:20)
[2021-07-31] MEDS: LISINOPRIL 10 MG TABLET PO SCH (09:55)
[2021-07-31] MEDS: INSULIN REGULAR, HUMAN 300 UNIT/3 ML VIAL SQ PRN ×2 (11:44→17:14)
[2021-07-31] MEDS: OXYCODONE/APAP 5-325 MG TABLET PO PRN (12:08)
[2021-07-31 16:00] VITALS: BP 98/50
[2021-07-31] MEDS: MIRALAX 17 GM POWD.PACK PO PRN (17:55)
[2021-07-31 20:18] VITALS: BP 112/51
[2021-07-31] MEDS: ATORVASTATIN 20 MG TABLET PO SCH (20:19)
[2021-07-31] MEDS: TAMSULOSIN HCL 0.4 MG CAP.SR.24H PO SCH (20:19)
[2021-07-31] MEDS: INSULIN REGULAR, HUMAN 300 UNITS/3 ML VIAL SQ PRN (20:26)
[2021-07-31] MEDS ORDERED: ACETAMINOPHEN 325 MG TABLET PO ONE ×2 (22:45)
[2021-08-01 04:00] VITALS: BP 99/56
[2021-08-01] MEDS: PANTOPRAZOLE SODIUM 40 MG TABLET.DR PO SCH (06:11)
[2021-08-01] MEDS: BLOOD SUGAR DIAGNOSTIC 1 EACH STRIP VI SCH ×4 (06:35→21:24)
[2021-08-01 07:50] VITALS: BP 127/52
[2021-08-01] MEDS: OXYCODONE HCL 20 MG TAB.SR.12H PO SCH ×3 (08:45→23:50)
[2021-08-01] MEDS: CLOPIDOGREL 75 MG TABLET PO SCH (08:45)
[2021-08-01] MEDS: ASPIRIN EC 81 MG TABLET.DR PO SCH (08:45)
[2021-08-01] MEDS: APIXABAN 5 MG TABLET PO SCH ×2 (08:46→16:53)
[2021-08-01] MEDS: DOCUSATE SODIUM 100 MG CAPSULE PO SCH ×2 (08:46→21:08)
[2021-08-01] MEDS: LISINOPRIL 10 MG TABLET PO SCH (09:00)
[2021-08-01] MEDS: CARVEDILOL 6.25 MG TABLET PO SCH ×2 (09:00→21:00)
[2021-08-01] MEDS: INSULIN REGULAR, HUMAN 300 UNIT/3 ML VIAL SQ PRN (12:30)
[2021-08-01 15:07] VITALS: BP 106/46
[2021-08-01] MEDS: MIRALAX 17 GM POWD.PACK PO PRN (17:37)
[2021-08-01 20:00] VITALS: BP 107/68
[2021-08-01] MEDS: ATORVASTATIN 20 MG TABLET PO SCH (21:08)
[2021-08-01] MEDS: TAMSULOSIN HCL 0.4 MG CAP.SR.24H PO SCH (21:18)
[2021-08-01] MEDS: INSULIN REGULAR, HUMAN 300 UNITS/3 ML VIAL SQ PRN (21:57)
[2021-08-02 02:10] VITALS: BP 102/66
[2021-08-02 04:00] VITALS: BP 108/69
[2021-08-02] MEDS: PANTOPRAZOLE SODIUM 40 MG TABLET.DR PO SCH (07:00)
[2021-08-02] MEDS: BLOOD SUGAR DIAGNOSTIC 1 EACH STRIP VI SCH ×4 (07:12→20:29)
[2021-08-02 08:42] VITALS: BP 122/82
[2021-08-02] MEDS: CLOPIDOGREL 75 MG TABLET PO SCH (09:10)
[2021-08-02] MEDS: ASPIRIN EC 81 MG TABLET.DR PO SCH (09:10)
[2021-08-02] MEDS: CARVEDILOL 6.25 MG TABLET PO SCH ×2 (09:13→20:28)
[2021-08-02] MEDS: LISINOPRIL 10 MG TABLET PO SCH (09:14)
[2021-08-02] MEDS: APIXABAN 5 MG TABLET PO SCH ×2 (09:14→17:08)
[2021-08-02] MEDS: DOCUSATE SODIUM 100 MG CAPSULE PO SCH ×2 (09:16→20:21)
[2021-08-02] MEDS: OXYCODONE HCL 20 MG TAB.SR.12H PO SCH ×2 (09:18→20:00)
[2021-08-02] MEDS: OXYCODONE/APAP 5-325 MG TABLET PO PRN (11:29)
[2021-08-02 15:56] VITALS: BP 113/51
[2021-08-02 20:00] VITALS: BP 118/51
[2021-08-02] MEDS: TAMSULOSIN HCL 0.4 MG CAP.SR.24H PO SCH (20:21)
[2021-08-02] MEDS: ATORVASTATIN 20 MG TABLET PO SCH (20:21)
[2021-08-02] MEDS: INSULIN REGULAR, HUMAN 300 UNITS/3 ML VIAL SQ PRN (20:24)
[2021-08-03 04:00] VITALS: BP 102/62
[2021-08-03] MEDS: PANTOPRAZOLE SODIUM 40 MG TABLET.DR PO SCH (06:01)
[2021-08-03] MEDS: BLOOD SUGAR DIAGNOSTIC 1 EACH STRIP VI SCH ×4 (06:05→20:15)
[2021-08-03 08:01] VITALS: BP 110/54
[2021-08-03] MEDS: DOCUSATE SODIUM 100 MG CAPSULE PO SCH ×2 (08:11→20:10)
[2021-08-03] MEDS: ASPIRIN EC 81 MG TABLET.DR PO SCH (08:11)
[2021-08-03] MEDS: CLOPIDOGREL 75 MG TABLET PO SCH (08:11)
[2021-08-03] MEDS: CARVEDILOL 6.25 MG TABLET PO SCH ×2 (08:12→20:10)
[2021-08-03] MEDS: LISINOPRIL 10 MG TABLET PO SCH (08:12)
[2021-08-03] MEDS: OXYCODONE HCL 20 MG TAB.SR.12H PO SCH ×2 (08:12→20:10)
[2021-08-03] MEDS: APIXABAN 5 MG TABLET PO SCH ×2 (08:13→16:51)
[2021-08-03] MEDS: INSULIN REGULAR, HUMAN 300 UNIT/3 ML VIAL SQ PRN ×2 (13:05→20:18)
[2021-08-03] MEDS: OXYCODONE/APAP 5-325 MG TABLET PO PRN (13:20)
[2021-08-03 15:13] VITALS: BP 120/58
[2021-08-03 19:50] VITALS: BP 95/62
[2021-08-03] MEDS: ATORVASTATIN 20 MG TABLET PO SCH (20:10)
[2021-08-03] MEDS: TAMSULOSIN HCL 0.4 MG CAP.SR.24H PO SCH (20:10)
[2021-08-04 04:48] VITALS: BP 98/46
[2021-08-04 06:03] VITALS: BP 117/46
[2021-08-04] MEDS: PANTOPRAZOLE SODIUM 40 MG TABLET.DR PO SCH (06:09)
[2021-08-04 08:00] VITALS: BP 116/45
[2021-08-04] MEDS: ASPIRIN EC 81 MG TABLET.DR PO SCH (08:28)
[2021-08-04] MEDS: BLOOD SUGAR DIAGNOSTIC 1 EACH STRIP VI SCH ×2 (08:28→11:51)
[2021-08-04] MEDS: CLOPIDOGREL 75 MG TABLET PO SCH (08:29)
[2021-08-04] MEDS: OXYCODONE HCL 20 MG TAB.SR.12H PO SCH (08:29)
[2021-08-04] MEDS: DOCUSATE SODIUM 100 MG CAPSULE PO SCH (08:29)
[2021-08-04] MEDS: APIXABAN 5 MG TABLET PO SCH (08:29)
[2021-08-04] MEDS: LISINOPRIL 10 MG TABLET PO SCH (08:31)
[2021-08-04] MEDS: CARVEDILOL 6.25 MG TABLET PO SCH (08:31)
[2021-08-04] MEDS: OXYCODONE/APAP 5-325 MG TABLET PO PRN (10:40)
[2021-08-04 11:43] LABS: HEMATOCRIT 32.4 % (36.7-47.1); MEAN CORPUSCULAR HEMOGLOBIN 30.1 uug (23.8-33.4); MEAN CORPUSCULAR VOLUME 92.8 fL (73.0-96.2); PLATELET COUNT (AUTO) 315 K/uL (152-348)
[2021-08-04 11:49] LABS: CARBON DIOXIDE 24 mmol/L (21-32); CHLORIDE 102 mmol/L (98-107); CREATININE 1.7 mg/dL (0.6-1.3); GLUCOSE 171 mg/dL (74-106); POTASSIUM 4.9 mmol/L (3.5-5.1); UREA NITROGEN, BLOOD 37 mg/dL (7-18)
[2021-08-04] MEDS: INSULIN REGULAR, HUMAN 300 UNIT/3 ML VIAL SQ PRN (11:52)
[2021-08-04 11:55] LABS: ALANINE AMINOTRANSFERASE 13 U/L (16-63); ALKALINE PHOSPHATASE 160 U/L (50-136); ASPARTATE AMINOTRANSFERASE 16 U/L (15-37); BILIRUBIN,TOTAL 0.6 mg/dL (0.2-1.0); TOTAL PROTEIN, SERUM 7.8 g/dL (6.4-8.2)
[2021-08-04 12:00] VITALS: BP 94/52
== END 2021-08-04 14:31 | disposition home health service (06) | DRG 559 ==
PROVIDERS: ADMIT Physical Medicine & Rehabilitation Pain Medicine; ATTEND Physical Medicine & Rehabilitation Pain Medicine
DX: S72.142D Displaced intertrochanteric fracture of left femur, subsequent encounter for closed fracture with routine healing (principal); N17.0 Acute kidney failure with tubular necrosis; D68.59 Other primary thrombophilia; K91.89 Other postprocedural complications and disorders of digestive system; K56.7 Ileus, unspecified; W18.30XD Fall on same level, unspecified, subsequent encounter; Z96.651 Presence of right artificial knee joint; E11.9 Type 2 diabetes mellitus without complications; D64.89 Other specified anemias; E11.22 Type 2 diabetes mellitus with diabetic chronic kidney disease; E78.5 Hyperlipidemia, unspecified; Z96.641 Presence of right artificial hip joint; I12.9 Hypertensive chronic kidney disease with stage 1 through stage 4 chronic kidney disease, or unspecified chronic kidney disease; I73.9 Peripheral vascular disease, unspecified; I70.0 Atherosclerosis of aorta; N18.9 Chronic kidney disease, unspecified; M19.90 Unspecified osteoarthritis, unspecified site; I95.9 Hypotension, unspecified; R26.89 Other abnormalities of gait and mobility
CPT/HCPCS: 36415; 73501; 85025; 86850; 86900; 86901; 86920; 97161; 97535-GO-CO; A4663; A6209; J0885; J1815

== ENCOUNTER 2024-01-14 16:03 | Inpatient (IN) | payer MEDICARE, OTHER ==
[~2024-01-14] VITALS: Ht 121.9 cm; Wt 69.5 kg
[~2024-01-14 16:03] MED LIST changes: -CLOP75TA15 PO; -ROSU10TA2 GT; +ROSU10TA2 PO
[2024-01-14 16:22] LABS: BASOPHILS % (AUTO) 0.3 % (0.0-2.0); EOSINOPHILS # (AUTO) 0.3 K/uL (0.0-0.7); EOSINOPHILS % (AUTO) 3.6 % (0.0-7.0); HEMATOCRIT 45.4 % (36.7-47.1); HEMOGLOBIN 14.8 g/dL (12.5-16.3); LYMPHOCYTES # (AUTO) 1.4 K/uL (0.8-4.8); MEAN CORPUSCULAR HEMOGLOBIN 31.7 uug (23.8-33.4); MEAN CORPUSCULAR HGB CONC 33 g/dL (32.5-36.3); MEAN CORPUSCULAR VOLUME 97.1 fL (73.0-96.2); MONOCYTES # (AUTO) 0.5 K/uL (0.1-1.30); MONOCYTES % (AUTO) 6.6 % (0.0-11.0); NEUTROPHILS # (AUTO) 5.1 K/uL (1.8-8.9); NEUTROPHILS % (AUTO) 70.5 % (38.5-71.5); PLATELET COUNT (AUTO) 181 K/uL (152-348); RED BLOOD CELL COUNT(AUTO) 4.68 MIL/uL (4.06-5.63); RED CELL DISTRIBUTION WIDTH 14.6 % (12.1-16.2); WHITE BLOOD COUNT (AUTO) 7.2 K/uL (3.6-10.2)
[2024-01-14] MEDS: IV NORMAL SALINE 500 ML BAG IV ONE (16:25)
[2024-01-14 16:26] LABS: DIFFERENTIAL COMMENT 1
[2024-01-14 16:30] LABS: CALCIUM 9.5 mg/dL (8.5-10.1); CARBON DIOXIDE 22 mmol/L (21-32); CHLORIDE 107 mmol/L (98-107); CREATININE 1.4 mg/dL (0.6-1.3); GLUCOSE 170 mg/dL (74-106); POTASSIUM 4.5 mmol/L (3.5-5.1); SODIUM SERUM 141 mmol/L (136-145); UREA NITROGEN, BLOOD 38 mg/dL (7-18)
[2024-01-14 16:35] LABS: ALANINE AMINOTRANSFERASE 24 U/L (16-63); ALBUMIN 3.5 g/dL (3.4-5.0); ALKALINE PHOSPHATASE 73 U/L (50-136); ASPARTATE AMINOTRANSFERASE 6 U/L (15-37); BILIRUBIN,DIRECT 0.1 mg/dL (0.0-0.2); BILIRUBIN,TOTAL 0.5 mg/dL (0.2-1.0)
[2024-01-14] MEDS ORDERED: MAGN400O6 PO (16:49)
[2024-01-14] MEDS ORDERED: SODIUM PHOSPHATE PR (16:49)
[2024-01-14] MEDS ORDERED: PANT20TA2 PO (16:49)
[2024-01-14] MEDS ORDERED: LINA5TAB PO (16:49)
[2024-01-14] MEDS ORDERED: ATOR20TA PO (16:49)
[2024-01-14] MEDS ORDERED: BISA10SU61 RC (16:49)
[2024-01-14] MEDS ORDERED: ACET-3117 PO (16:49)
[2024-01-14] MEDS ORDERED: ASPI-1101 PO (16:49)
[2024-01-14] MEDS ORDERED: LINA72CA PO (16:49)
[2024-01-14] MEDS ORDERED: MULT-213 PO (16:49)
[2024-01-14] MEDS ORDERED: DEXT1DRO6 OP (16:49)
[2024-01-14] MEDS ORDERED: POLY250017 PO (16:49)
[2024-01-14] MEDS ORDERED: LISI10TA29 PO (16:49)
[2024-01-14] MEDS ORDERED: HYDR-3972 PO (16:49)
[2024-01-14] MEDS ORDERED: SENN8.6T19 PO (16:49)
[2024-01-14] MEDS ORDERED: Medication Not On Formulary EA (Acetaminophen 650 MG) PO PRN (19:45)
[2024-01-14] MEDS ORDERED: BISACODYL 10 MG SUPP.RECT RC PRN (19:45)
[2024-01-14] MEDS ORDERED: ONDANSETRON 4 MG/2 ML VIAL IV PRN (20:00)
[2024-01-14] MEDS ORDERED: TEMAZEPAM 15 MG CAPSULE PO PRN (20:00)
[2024-01-14 20:15] VITALS: BP 131/44; TEMP 97.4; O2SAT 94
[2024-01-14] MEDS: CARVEDILOL 6.25 MG TABLET PO SCH (21:58)
[2024-01-14] MEDS: GABAPENTIN 100 MG CAPSULE PO SCH (21:59)
[2024-01-14] MEDS: DOCUSATE SODIUM 100 MG CAPSULE PO SCH (21:59)
[2024-01-14] MEDS: ATORVASTATIN 20 MG TABLET PO SCH (21:59)
[2024-01-14] MEDS: TAMSULOSIN HCL 0.4 MG CAP.SR.24H PO SCH (21:59)
[2024-01-14] MEDS: SENNOSIDES 1 TABLET PO SCH (21:59)
[2024-01-14] MEDS: MAGNESIUM HYDROXIDE 30 ML LIQUID UDC PO PRN (22:00)
[2024-01-14] MEDS: IV 1/2NS 1000 ML 1,000 ML IV PRN (22:23)
[2024-01-15] MEDS ORDERED: BISACODYL 10 MG SUPP.RECT RC PRN (04:51)
[2024-01-15 05:59] VITALS: BP 122/53; TEMP 97.3; O2SAT 95
[2024-01-15] MEDS: PANTOPRAZOLE SODIUM 40 MG TABLET.DR PO SCH (06:31)
[2024-01-15 07:35] LABS: BASOPHILS % (AUTO) 0.4 % (0.0-2.0); EOSINOPHILS # (AUTO) 0.3 K/uL (0.0-0.7); EOSINOPHILS % (AUTO) 4.5 % (0.0-7.0); HEMOGLOBIN 14.2 g/dL (12.5-16.3); LYMPHOCYTES # (AUTO) 1.9 K/uL (0.8-4.8); LYMPHOCYTES % (AUTO) 30.2 % (20.5-51.5); MEAN CORPUSCULAR HEMOGLOBIN 32.2 uug (23.8-33.4); MEAN CORPUSCULAR HGB CONC 33 g/dL (32.5-36.3); MEAN CORPUSCULAR VOLUME 97.7 fL (73.0-96.2); MONOCYTES # (AUTO) 0.4 K/uL (0.1-1.30); MONOCYTES % (AUTO) 6.9 % (0.0-11.0); NEUTROPHILS # (AUTO) 3.7 K/uL (1.8-8.9); PLATELET COUNT (AUTO) 159 K/uL (152-348); RED BLOOD CELL COUNT(AUTO) 4.41 MIL/uL (4.06-5.63); RED CELL DISTRIBUTION WIDTH 14.4 % (12.1-16.2); WHITE BLOOD COUNT (AUTO) 6.5 K/uL (3.6-10.2)
[2024-01-15 07:41] LABS: DIFFERENTIAL COMMENT 1
[2024-01-15 08:02] LABS: ALANINE AMINOTRANSFERASE 24 U/L (16-63); ALKALINE PHOSPHATASE 66 U/L (50-136); ASPARTATE AMINOTRANSFERASE 7 U/L (15-37); BILIRUBIN,TOTAL 0.4 mg/dL (0.2-1.0); CALCIUM 8.7 mg/dL (8.5-10.1); CARBON DIOXIDE 22 mmol/L (21-32); CHLORIDE 108 mmol/L (98-107); CHOLESTEROL 114 mg/dL (<200); CREATININE 1.1 mg/dL (0.6-1.3); GLUCOSE 136 mg/dL (74-106); HDL CHOLESTEROL 45 mg/dL (40-60); PHOSPHOROUS 2.9 mg/dL (2.5-4.9); POTASSIUM 3.7 mmol/L (3.5-5.1); SODIUM SERUM 140 mmol/L (136-145); TOTAL PROTEIN, SERUM 6.4 g/dL (6.4-8.2); TRIGLYCERIDES 121 MG/DL (30-150); UREA NITROGEN, BLOOD 30 mg/dL (7-18)
[2024-01-15 08:10] LABS: IRON, SERUM 50 ug/dL (50-175)
[2024-01-15] MEDS: CLOPIDOGREL 75 MG TABLET PO SCH (08:37)
[2024-01-15] MEDS: ASPIRIN EC 81 MG TABLET.DR PO SCH (08:37)
[2024-01-15] MEDS: CARVEDILOL 6.25 MG TABLET PO SCH (08:37)
[2024-01-15] MEDS: MULTIVITAMINS,THERAPEUTIC TABLET PO SCH (08:37)
[2024-01-15] MEDS: LINAGLIPTIN 5 MG TABLET PO SCH (08:37)
[2024-01-15] MEDS: LISINOPRIL 10 MG TABLET PO SCH (08:40)
[2024-01-15 08:52] LABS: THYROID STIMULATING HORMONE 4.554 mIU/mL (0.358-3.740)
[2024-01-15] MEDS ORDERED: HYPROMELLOSE OP SCH (09:00)
[2024-01-15] MEDS ORDERED: Linaclotide (Linzess) 72 MCG) PO SCH (09:00)
[2024-01-15] MEDS ORDERED: DEXTRAN OP SCH (09:00)
[2024-01-15] MEDS ORDERED: ACET325T53 PO (10:33)
[2024-01-15 12:00] VITALS: BP 107/46; TEMP 97.6; O2SAT 94
[2024-01-15] MEDS: ARGININE/GLUTAMINE/CALCIUM BMB 1 EACH POWD.PACK PO SCH (15:20)
[2024-01-15] MEDS: MEDIHONEY= THERAHONEY 1.5 OZ TUBE TOP SCH (15:20)
[2024-01-15 15:51] VITALS: BP 116/44; TEMP 98.3; O2SAT 94
[2024-01-15] MEDS ORDERED: DEXTROSE 50% 50 ML DISP.SYRIN IV PRN (19:45)
[2024-01-15 20:00] VITALS: BP 113/65; TEMP 98.3; O2SAT 95
[2024-01-15] MEDS: BLOOD SUGAR DIAGNOSTIC 1 EACH STRIP VI SCH (20:45)
[2024-01-15] MEDS: INSULIN REGULAR, HUMAN 300 UNIT/3 ML VIAL SQ PRN (20:46)
[2024-01-15] MEDS: ATORVASTATIN 10 MG TABLET PO SCH (20:47)
[2024-01-16] MEDS: PANTOPRAZOLE SODIUM 40 MG TABLET.DR PO SCH (06:18)
[2024-01-16] MEDS: ZINC SULFATE 220 MG CAPSULE PO SCH (08:56)
[2024-01-16] MEDS: ASCORBIC ACID 500 MG TABLET PO SCH (08:57)
[2024-01-16 12:00] VITALS: BP 105/55; TEMP 97.6; O2SAT 97
[2024-01-16 15:59] VITALS: BP 110/58; TEMP 97.6; O2SAT 97
[2024-01-16 20:08] VITALS: BP 114/50; TEMP 98.4; O2SAT 94
[2024-01-16] MEDS: GENTAMICIN SULFATE OPHT DROP 5 ML BOTTLE EACHEYE SCH (21:10)
[2024-01-17 04:20] VITALS: BP 132/55; TEMP 98.2; O2SAT 93
[2024-01-17 06:42] LABS: BASOPHILS % (AUTO) 0.3 % (0.0-2.0); EOSINOPHILS # (AUTO) 0.3 K/uL (0.0-0.7); EOSINOPHILS % (AUTO) 4.7 % (0.0-7.0); HEMATOCRIT 43.8 % (36.7-47.1); HEMOGLOBIN 14.6 g/dL (12.5-16.3); LYMPHOCYTES # (AUTO) 1.8 K/uL (0.8-4.8); LYMPHOCYTES % (AUTO) 26.8 % (20.5-51.5); MEAN CORPUSCULAR HEMOGLOBIN 32.4 uug (23.8-33.4); MEAN CORPUSCULAR HGB CONC 33 g/dL (32.5-36.3); MEAN CORPUSCULAR VOLUME 97.3 fL (73.0-96.2); MONOCYTES # (AUTO) 0.4 K/uL (0.1-1.30); MONOCYTES % (AUTO) 6.4 % (0.0-11.0); NEUTROPHILS # (AUTO) 4.2 K/uL (1.8-8.9); NEUTROPHILS % (AUTO) 61.8 % (38.5-71.5); PLATELET COUNT (AUTO) 164 K/uL (152-348); RED CELL DISTRIBUTION WIDTH 14.3 % (12.1-16.2); WHITE BLOOD COUNT (AUTO) 6.7 K/uL (3.6-10.2)
[2024-01-17 07:09] LABS: CALCIUM 9.4 mg/dL (8.5-10.1); CARBON DIOXIDE 23 mmol/L (21-32); CHLORIDE 107 mmol/L (98-107); CREATININE 0.9 mg/dL (0.6-1.3); GLUCOSE 106 mg/dL (74-106); MAGNESIUM 1.9 mg/dL (1.8-2.4); PHOSPHOROUS 2.7 mg/dL (2.5-4.9); SODIUM SERUM 141 mmol/L (136-145); UREA NITROGEN, BLOOD 29 mg/dL (7-18)
[2024-01-17 07:17] LABS: POTASSIUM 3.8 mmol/L (3.5-5.1)
[2024-01-17 07:19] LABS: DIFFERENTIAL COMMENT 1
[2024-01-17 08:00] VITALS: BP 128/75; TEMP 98; O2SAT 94
[2024-01-17] MEDS: POLYVINYL ALCOHOL OPHT DROPS 15 ML BOTTLE OP PRN (09:01)
[2024-01-17 12:08] VITALS: BP 108/76; TEMP 97.5; O2SAT 92
[2024-01-17 14:48] VITALS: BP 125/55; TEMP 98.4; O2SAT 94
[2024-01-17] MEDS ORDERED: BISACODYL 10 MG SUPP.RECT RC PRN (19:15)
[2024-01-17 19:43] VITALS: BP 116/49; TEMP 97.5; O2SAT 95
[2024-01-17] MEDS ORDERED: MORPHINE SULFATE 2 MG/1 ML DISP.SYRIN IV PRN (20:30)
[2024-01-17] MEDS: IV D5/ 0.9% NACL 1,000 ML IV PRN (21:29)
[2024-01-18] MEDS ORDERED: INSULIN REGULAR, HUMAN 300 UNIT/3 ML VIAL SQ PRN (01:45)
[2024-01-18] MEDS ORDERED: DEXTROSE 50% 50 ML DISP.SYRIN IV PRN ×2 (01:45)
[2024-01-18] MEDS: BLOOD SUGAR DIAGNOSTIC 1 EACH STRIP VI SCH (06:15)
[2024-01-18] MEDS: INSULIN REGULAR, HUMAN 300 UNIT/3 ML VIAL SQ PRN (06:16)
[2024-01-18 06:20] VITALS: BP 122/64; TEMP 97.6; O2SAT 93
[2024-01-18] MEDS ORDERED: BLOOD SUGAR DIAGNOSTIC 1 EACH STRIP VI SCH (07:30)
[2024-01-18 12:00] VITALS: BP 142/68; TEMP 97.6; O2SAT 98
[2024-01-18 16:00] VITALS: BP 117/76; TEMP 97.2; O2SAT 96
[2024-01-18] MEDS: HYDROCODONE/APAP 5-325MG TABLET PO PRN (17:26)
[2024-01-18 20:00] VITALS: BP_SYST 117; TEMP 97.7; O2SAT 94
[2024-01-19] MEDS: POLYVINYL ALCOHOL OPHT DROPS 15 ML BOTTLE OP SCH
[2024-01-19 06:33] VITALS: BP 106/68; TEMP 97.4; O2SAT 93
[2024-01-19] MEDS: POLYVINYL ALCOHOL OPHT DROPS 15 ML BOTTLE EACHEYE SCH (09:46)
[2024-01-19 12:00] VITALS: BP 114/62; TEMP 97.5; O2SAT 97
[2024-01-19] MEDS ORDERED: VANCOMYCIN 1000 MG VIAL ONE (12:01)
[2024-01-19] MEDS ORDERED: PROPOFOL 200 MG/20 ML BOTTLE ONE (13:00)
[2024-01-19] MEDS ORDERED: FENTANYL CITRATE 100 MCG/2 ML AMPUL ONE ×2 (13:34→15:52)
[2024-01-19 15:55] VITALS: BP 136/80; TEMP 97.8; O2SAT 97
[2024-01-19 17:53] VITALS: BP 145/68; O2SAT 97
[2024-01-19 20:42] VITALS: BP 134/68; TEMP 98; O2SAT 96
[2024-01-19] MEDS: ACETAMINOPHEN 325 MG TABLET PO PRN (20:50)
[2024-01-19] MEDS: CEFAZOLIN 1 G in IV DEXTROSE 5% 50 ML IV SCH (22:31)
[2024-01-20] MEDS: HYDROCODONE/APAP 10-325 MG TABLET PO PRN (01:22)
[2024-01-20] MEDS: POTASSIUM CHLORIDE 20 MEQ in IV D5 1/2 NS 1000 ML 1,000 ML IV PRN (02:11)
[2024-01-20 05:15] VITALS: BP 115/49; TEMP 98.1; O2SAT 91
[2024-01-20 07:11] LABS: BASOPHILS % (AUTO) 0.3 % (0.0-2.0); EOSINOPHILS # (AUTO) 0.2 K/uL (0.0-0.7); EOSINOPHILS % (AUTO) 3.4 % (0.0-7.0); HEMATOCRIT 39.5 % (36.7-47.1); LYMPHOCYTES # (AUTO) 1.2 K/uL (0.8-4.8); LYMPHOCYTES % (AUTO) 18.8 % (20.5-51.5); MEAN CORPUSCULAR HEMOGLOBIN 32.2 uug (23.8-33.4); MEAN CORPUSCULAR HGB CONC 33 g/dL (32.5-36.3); MEAN CORPUSCULAR VOLUME 97.5 fL (73.0-96.2); MONOCYTES # (AUTO) 0.5 K/uL (0.1-1.30); MONOCYTES % (AUTO) 7.7 % (0.0-11.0); NEUTROPHILS # (AUTO) 4.5 K/uL (1.8-8.9); NEUTROPHILS % (AUTO) 69.8 % (38.5-71.5); PLATELET COUNT (AUTO) 159 K/uL (152-348); RED BLOOD CELL COUNT(AUTO) 4.05 MIL/uL (4.06-5.63); WHITE BLOOD COUNT (AUTO) 6.4 K/uL (3.6-10.2)
[2024-01-20 07:18] LABS: CALCIUM 8.6 mg/dL (8.5-10.1); CREATININE 0.9 mg/dL (0.6-1.3); PHOSPHOROUS 2.1 mg/dL (2.5-4.9); POTASSIUM 4.1 mmol/L (3.5-5.1)
[2024-01-20 07:54] LABS: DIFFERENTIAL COMMENT 1
[2024-01-20] MEDS: LISINOPRIL 5 MG TABLET PO SCH (08:42)
[2024-01-20] MEDS: MORPHINE SULFATE 2 MG/1 ML DISP.SYRIN IV PRN (10:14)
[2024-01-20 11:02] VITALS: BP 105/43; TEMP 97.4; O2SAT 93
[2024-01-20 15:01] VITALS: BP 126/46; TEMP 97.6; O2SAT 94
[2024-01-20] MEDS: NEUTRA PHOS PACKET PO ONE (16:12)
[2024-01-20 20:32] VITALS: BP 138/54; TEMP 99.1; O2SAT 93
[2024-01-21 06:28] VITALS: BP 133/54; TEMP 99.5; O2SAT 92
[2024-01-21 07:16] LABS: CALCIUM 8.7 mg/dL (8.5-10.1); PHOSPHOROUS 2.2 mg/dL (2.5-4.9); POTASSIUM 4.2 mmol/L (3.5-5.1)
[2024-01-21 11:46] VITALS: BP 123/54; TEMP 98.1; O2SAT 93
[2024-01-21 16:00] VITALS: BP 129/61; TEMP 98.5; O2SAT 93
[2024-01-21] MEDS: NEUTRA PHOS PACKET PO ONE (16:06)
[2024-01-21 21:50] VITALS: BP 162/92; TEMP 99.4; O2SAT 93
[2024-01-22 06:28] VITALS: BP 117/57; TEMP 98.8; O2SAT 92
[2024-01-22 13:13] VITALS: BP 94/50; TEMP 98.1; O2SAT 91
[2024-01-22 16:06] VITALS: BP 92/61; TEMP 98.7; O2SAT 93
[2024-01-22 20:00] VITALS: BP 103/68; TEMP 98.1; O2SAT 92
[2024-01-23 06:00] VITALS: BP 106/65; TEMP 98.4; O2SAT 92
[2024-01-23 08:40] VITALS: BP 112/63; O2SAT 93
[2024-01-23 11:31] VITALS: BP 105/42; TEMP 98.1; O2SAT 93
[2024-01-23] MEDS: BISACODYL 10 MG SUPP.RECT RC ONE (15:53)
[2024-01-23] MEDS: MIRALAX 17 GM POWD.PACK PO PRN (15:54)
[2024-01-23 16:00] VITALS: BP 98/50; TEMP 97.8; O2SAT 94
== END 2024-01-23 18:30 | DRG 474 ==
LOC: ER 16:10 → MEDSURG3 18:49
PROVIDERS: ADMIT Internal Medicine; ATTEND Internal Medicine
PROC: 0Y6C0Z3 Detachment at Right Upper Leg, Low, Open Approach (ICD-10-PCS; principal; 2024-01-19)
DX: T87.89 Other complications of amputation stump (principal); L89.323 Pressure ulcer of left buttock, stage 3; N17.0 Acute kidney failure with tubular necrosis; E11.42 Type 2 diabetes mellitus with diabetic polyneuropathy; E11.51 Type 2 diabetes mellitus with diabetic peripheral angiopathy without gangrene; M89.9 Disorder of bone, unspecified; Z87.891 Personal history of nicotine dependence; R00.1 Bradycardia, unspecified; D75.89 Other specified diseases of blood and blood-forming organs; N40.0 Benign prostatic hyperplasia without lower urinary tract symptoms; K21.9 Gastro-esophageal reflux disease without esophagitis; K58.1 Irritable bowel syndrome with constipation; I25.10 Atherosclerotic heart disease of native coronary artery without angina pectoris; E78.5 Hyperlipidemia, unspecified; Z98.49 Cataract extraction status, unspecified eye; H10.9 Unspecified conjunctivitis; Z95.1 Presence of aortocoronary bypass graft; Z79.01 Long term (current) use of anticoagulants; Z79.84 Long term (current) use of oral hypoglycemic drugs; Z90.49 Acquired absence of other specified parts of digestive tract; Z96.641 Presence of right artificial hip joint; Z79.82 Long term (current) use of aspirin; Z79.02 Long term (current) use of antithrombotics/antiplatelets; Z86.16 Personal history of COVID-19; Z89.612 Acquired absence of left leg above knee; Z89.611 Acquired absence of right leg above knee; R94.31 Abnormal electrocardiogram [ECG] [EKG]
CPT/HCPCS: 36415; 71045; 73551; 83550; 83605; 83735; 84100; 84443; 85025; 85610; 87040; 93005; 93307; A4606; A4649; A4663; A6209; A6213; G0378; J0690; J1815; J2270; J2405; J2765; J3010; J3370; J3480; J3490; J7040; J7042